=== PATIENT | male | born 1970 | race Two or more races ===

== ENCOUNTER 2017-08-13 17:50 | Emergency (ER) | payer MEDICAID ==
[~2017-08-13] VITALS: Ht 170.2 cm; Wt 89.4 kg
[2017-08-13] MEDS ORDERED: MORPHINE SULFATE INJ 4 MG/ML DISP.SYRIN ONE ×2 (17:56→19:30)
[2017-08-13] MEDS ORDERED: ONDANSETRON HCL/PF 4 MG/2 ML VIAL ONE (17:56)
[2017-08-13] MEDS ORDERED: TDAP [DIPH/PERTUSSIS/TET] 0.5 ML VIAL IM ONE ×2 (17:56→18:00)
[2017-08-13] MEDS ORDERED: LIDOCAINE HCL/PF 1% 30 ML SDV ONE (17:57)
[2017-08-13] MEDS ORDERED: MORPHINE SULFATE INJ 2 MG/ML DISP.SYRIN IV ONE ×2 (18:00→19:30)
[2017-08-13] MEDS ORDERED: IV NS 0.9% 1,000 ML BAG IV ONE (18:00)
[2017-08-13] MEDS ORDERED: ONDANSETRON HCL/PF 4 MG/2 ML VIAL IVP ONE (18:00)
[2017-08-13 18:04] LABS: BASOPHILS # (AUTO) 0.2 /CMM (0.0-0.2); BASOPHILS % (AUTO) 1.7 % (0.0-2.0); EOSINOPHILS # (AUTO) 0.2 /CMM (0.0-0.7); EOSINOPHILS % (AUTO) 1.8 % (0.0-6.0); HEMATOCRIT 45 % (39-51); HEMOGLOBIN 15.7 g/dL (13.5-17.5); LYMPHOCYTES # (AUTO) 4.7 /CMM (0.8-4.8); LYMPHOCYTES % (AUTO) 39.8 % (20.0-44.0); MEAN CORPUSCULAR HEMOGLOBIN 30 PG (26.0-33.0); MEAN CORPUSCULAR HGB CONC 35 g/dl (31.0-36.0); MEAN CORPUSCULAR VOLUME 86 fL (80-96); MONOCYTES # (AUTO) 0.7 /CMM (0.1-1.30); MONOCYTES % (AUTO) 6.1 % (2.0-12.0); NEUTROPHILS % (AUTO) 50.6 % (43.0-81.0); PLATELET COUNT (AUTO) 323 /CMM (150-450); RED BLOOD CELL COUNT(AUTO) 5.22 MIL/uL (4.5-6.0); WHITE BLOOD COUNT (AUTO) 11.8 K/uL (4.3-11.0)
--- NOTE | 2017-08-13 18:06 | NUR ---
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 LACERATION NOTED ON FOREHEAD. NEURO INTACT, AAO X4, AMBULATORY WITH STEADY GAIT. RR EVEN AND UNLABORED. MARIAJOSE. AT BEDSIDE FOR EVAL.
--- NOTE | 2017-08-13 18:46 | NUR ---
Marah day in [facility] - 08/13/17 [address] AT BEDSIDE
--- NOTE | 2017-08-13 18:46 | NUR ---
*XRAY AT BEDSIDE
--- NOTE | 2017-08-13 19:00 | NUR ---
PT BACK FROM CT SCAN
--- NOTE | 2017-08-13 19:59 | NUR ---
[facility] CALLED NOTIFIED OF HIGHER LEVEL OF CARE FOR COMPLEX FACIAL FRACTURES.
--- NOTE | 2017-08-13 20:05 | NUR ---
CALLED [facility]. PER NURSING PLY SPLICER THEY HAVE NO BEDS.
--- NOTE | 2017-08-13 20:07 | NUR ---
TULIO ESPINOSA CALLED NO ON-CALL PHYSICIAN FOR COMPLEX FACIAL FRACTURE.
[2017-08-13] MEDS ORDERED: LABETALOL 20 MG/4 ML VIAL IV ONE (20:30)
[2017-08-13] MEDS ORDERED: LABETALOL HCL IV 100MG VIAL ONE (20:34)
--- NOTE | 2017-08-13 20:37 | NUR ---
FAXED OVER FACE SHEET AND IMAGING TO [facility].
--- NOTE | 2017-08-13 20:46 | NUR ---
EMMANUEL FROM [facility] CALLED BACK WITH TRANSPORT INFO. PATIENT WILL BE TRANSFERRED TO [facility] ER DEPARTMENT. [facility] REFRENCE NUMBER #[id number]. ACCEPETED BY DR NOVA.
--- NOTE | 2017-08-13 20:57 | NUR ---
CALLED [facility] FOR TRANSPORT ETA OF 30 MINS WAS GIVEN. TRIP#[id number]
[2017-08-13] MEDS ORDERED: CEPHALEXIN MONOHYDRATE 500 MG CAPSULE PO ONE ×2 (21:46→22:00)
--- NOTE | 2017-08-13 21:56 | NUR ---
REPORT GIVEN TO ELAINE HASSAN RN AT [facility] ER FOR [place].
[2017-08-13] MEDS ORDERED: hydrALAZINE HCL IV 20 MG VIAL ONE (21:57)
[2017-08-13] MEDS ORDERED: HYDROMORPHONE INJ 2 MG/ML DISP.SYRIN IV ONE (22:00)
[2017-08-13] MEDS ORDERED: hydrALAZINE HCL IV 20 MG VIAL IV ONE (22:00)
[2017-08-13] MEDS ORDERED: HYDROMORPHONE INJ 0.5 MG/0.5 ML SYRINGE ONE (22:11)
[2017-08-13 22:16] VITALS: BP 164/112
--- NOTE | 2017-08-13 22:17 | NUR ---
ENDORSED CARE TO AMBULANCE STAFF FOR TRANSFER. PATIENT REMAINS ALERT AND RESPONSIVE. VSS. NAD NOTED.
== END 2017-08-13 22:19 | disposition short-term general hospital (02) ==
LOC: ER 17:53
DX: S02.2XXA Fracture of nasal bones, initial encounter for closed fracture (principal); S02.31XA Fracture of orbital floor, right side, initial encounter for closed fracture; S01.111A Laceration without foreign body of right eyelid and periocular area, initial encounter; S01.81XA Laceration without foreign body of other part of head, initial encounter; I10 Essential (primary) hypertension; W11.XXXA Fall on and from ladder, initial encounter; Y93.89 Activity, other specified; Y92.89 Other specified places as the place of occurrence of the external cause; Y99.8 Other external cause status
CPT/HCPCS: 12011; 36415; 70450; 70486; 71045; 85025; 90471; 90715; 96361; 96374; 96375; 96376; 99285; A4606; A6402; A6403; J0360; J2270 ×2; J2405; J3490 ×2; J7030; Z7610